=== PATIENT | female | born 1975 ===

== ENCOUNTER 2018-11-20 10:10 | Day surgery (SDC) | payer OTHER ==
[2018-11-20] MEDS ORDERED: NACL 0.9% 1000 ML 1,000 ML ONE (10:58)
[2018-11-20] MEDS ORDERED: XYLOCAINE MPF 2% ONE (11:00)
[2018-11-20] MEDS ORDERED: SUBLIMAZE ONE (12:28)
[2018-11-20] MEDS ORDERED: DIPRIVAN 10 MG/ML IV ONE ×2 (12:29→12:30)
[2018-11-20] MEDS ORDERED: NACL 0.9% 100 ML ONE (12:35)
--- NOTE | 2018-11-20 13:06 | Procedure Note ---
Date of procedure: 11/20/18 Pre-op diagnosis: Dyspepsia/ Colon Wall Thickening suggestive of Colitis per CT scan Post-op diagnosis: other (Mild to Moderate Distal Erosive Esophagitis/ Gastritis/ R/O Celiac Disease/ R/O Ileitis/ R/o Microscopic Colitis) Procedure: EGD with Biopsy/ Colonoscopy with Biopsy Anesthesia: LEEROY Surgeon: HEIDI HAND Estimated blood loss: minimal Pathology: list Specimen disposition: to lab Condition: stable Disposition: same day (Treat with PPI,prn Bentyl for abdominal pain, and OTC Probiotic. Avoid aspirin and NSAID for 5 days and follow up in 1 to 2 weeks ([phone]).)
--- NOTE | 2018-11-20 13:07 | Anesthesia Consultation ---
Anesthesia Consult and Med Hx Date of service: 11/20/18 - Airway Anesthetic Teeth Evaluation: Good ROM Head & Neck: Adequate Mental/Hyoid Distance: Adequate Mallampati Class: Class I Intubation Access Assessment: Good - Pulmonary Exam CTA: Yes - Cardiac Exam Cardiac Exam: RRR - Pre-Operative Health Status ASA Pre-Surgery Classification: ASA2 Proposed Anesthetic Plan: MAC
--- NOTE | 2018-11-20 13:08 | Anesthesia Day of Surgery ---
Anesthesia Day of Surgery - Day of Surgery Patient Examined: Yes Patient H&P Reviewed: Yes Patient is NPO: Yes Beta Blockers: No Cardiac Clearance: No Pulmonary Clearance: No
--- NOTE | 2018-11-20 13:21 | Operative Report ---
PROCEDURE: Esophagogastroduodenoscopy with biopsy. INDICATIONS: This is a 43-year-old female originally from [place], who has been having some dyspeptic symptoms. EGD was done to assess for any significant upper GI pathology. DESCRIPTION OF PROCEDURE: The procedure was done after getting informed consent with MAC anesthesia. Instrument was passed to the hypopharynx into the esophagus, which showed some mild to moderate distal erosive esophagitis. Stomach showed some mild antral gastritis. Biopsy was done from the distal esophagus as well as from the gastric antrum, angular incisure and gastric body to rule out for H. pylori and atrophic gastritis, additional biopsy. The pylorus is patent. The duodenum in the first and second portion appeared normal. Additional biopsy was done from the second part of the duodenum to rule out for possible celiac disease. There was minimal bleeding from the biopsy sites and no complications associated with the procedure. ASSESSMENT: Abdominal pain, dyspepsia, mild to moderate distal erosive esophagitis, gastritis, rule out celiac disease. PLAN: Plan is to treat the patient with PPI, p.r.n. dose of Bentyl. Have the patient avoid aspirin and aspirin-related products for the next few days and follow up in the office in 1-2 weeks' time. The patient will also be encouraged to take some [id number] probiotics. A colonoscopy will be done since the CT scan had shown evidence suggestive of thickening of the colon wall involving the transverse and the descending colon. Colonoscopy will be done for further assessment for possible associated colitis. DESCRIPTION OF PROCEDURE: The procedure was done in the presence of Zahra Crespo. The patient again will be asked to follow up in the office in 1-2 weeks' time. JOB# [id number] ROBBY/JIMMY
[2018-11-20 13:25] VITALS: BP 107/66
--- NOTE | 2018-11-20 13:25 | Operative Report ---
COLONOSCOPY A 43-year-old female originally from [place] who had been having some abdominal pain. CT scan showed presence of incidental hemangioma and possible thickening of the colon wall involving the transverse and the descending colon. Because of dyspeptic symptoms, an EGD was also done prior to the colonoscopy. EGD showed some [id number] distal erosive esophagitis, gastritis and biopsy was also done to rule out for possible celiac disease. Colonoscopy was done to make sure there was not any significant lower GI pathology present and any associated colitis as suggested by the patient's CT scan. Initial rectal exam was unremarkable. Instrument was passed through the rectum onto the cecum, which was identified with the ileocecal valve and the appendiceal orifice. The terminal ileum was intubated showed normal mucosa. Biopsy was done to rule out for possible ileitis. The scope was retroflexed in the cecum. No additional pathology was noted and the scope was then reintroduced after withdrawal to the hepatic flexure. Visualization was fair to good and the mucosa was washed with copious amounts of water and random biopsies were done from the cecum, ascending colon, transverse colon, descending colon, sigmoid and rectum to rule out for possible microscopic colitis. There was no endoscopic evidence of any colitis, diverticular disease or polyps noted. Some minimal bleeding from the biopsy sites. No complications associated with the procedures. ASSESSMENT: Abdominal pain, rule out microscopic colitis, rule out ileitis. PLAN: To treat the patient with a p.r.n. dose of Bentyl and probiotics, have the patient avoid aspirin and aspirin-related products for the next few days. The patient will also be placed on PPI because of the upper GI findings of esophagitis and gastritis and asked to follow up in the office in 1-2 weeks' time. RNZahra was in the room throughout the entirety of the procedure. The patient did have some mild bleeding from the biopsy sites, but no complications associated with the procedure. The patient will be asked to avoid any aspirin and aspirin-related products for the next 4-5 days and follow up in the office in 1-2 weeks' time. JOB# [id number] ROBBY/JIMMY
== END 2018-11-20 10:11 | disposition home or self-care (01) ==
LOC: GIO 10:10
DX: K29.50 Unspecified chronic gastritis without bleeding (principal); R10.9 Unspecified abdominal pain; K20.9 Esophagitis, unspecified; K52.9 Noninfective gastroenteritis and colitis, unspecified; K31.89 Other diseases of stomach and duodenum; K63.89 Other specified diseases of intestine; Z79.899 Other long term (current) drug therapy
CPT/HCPCS: 43239; 45380; 88305; 88312; 88342; J2704; J3010; J7030